=== PATIENT | female | born 1955 | race Caucasian/White ===

== ENCOUNTER 2020-10-01 08:28 | Outpatient (CLI) | payer OTHER, SELFPAY ==
--- NOTE | 2020-10-01 11:00 | NEURO_ITS ---
Impression: # Known diabetic complains of numbness of feet. 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 # Needle/EMG exam revealed decreased motor unit potentials but no fibrillations. # Findings consistent with neuropathy of axonal type. Nerve Conduction Studies Anti Sensory Summary Table Stim Site NR Peak (ms) P-T Amp (?V) Site1 Site2 Delta-P (ms) Dist (cm) Marshal (m/s) Left Sup Fibular Anti Sensory (Ant Lat Mall) 14 cm 4.2 2.2 14 cm Ant Lat Mall 4.2 16.0 38 Right Sup Fibular Anti Sensory (Ant Lat Mall) 14 cm 3.6 6.1 14 cm Ant Lat Mall 3.6 16.0 44 Left Sural Anti Sensory (Lat Mall) Calf 4.2 17.0 Calf Lat Mall 4.2 16.0 38 Right Sural Anti Sensory (Lat Mall) Calf 4.4 9.4 Calf Lat Mall 4.4 16.0 36 Motor Summary Table Stim Site NR Onset (ms) O-P Amp (mV) Site1 Site2 Delta-0 (ms) Dist (cm) Marshal (m/s) Left Peroneal Motor (Vastus Med) Ankle 4.1 0.4 Popit Ankle 10.3 43.0 42 Popit 14.4 0.6 Right Peroneal Motor (Vastus Med) Ankle 4.0 0.3 Popit Ankle 8.9 39.0 44 Popit 12.9 0.2 Left Tibial Motor (Abd Jones Brev) Ankle 5.2 0.8 Knee Ankle 11.4 43.0 38 Knee 16.6 1.5 Right Tibial Motor (Abd Jones Brev) Ankle 4.7 3.7 Knee Ankle 10.8 42.0 39 Knee 15.5 3.5 F Wave Studies NR F-Lat (ms) L-R F-Lat (ms) Left Peroneal (Mrkrs) (EDB) 56.09 0.47 Right Peroneal (Mrkrs) (EDB) 55.63 0.47 Left Tibial (Mrkrs) (Abd Hallucis) 56.81 0.00 Right Tibial (Mrkrs) (Abd Hallucis) 56.81 0.00 EMG Side Muscle Nerve Root Ins Act Fibs Amp Dur Recrt Comment Right AntTibialis Dp Br Fibular L4-5 Nml Nml Nml Nml Nml Right Gastroc Tibial S1-2 Nml Nml Nml Nml Nml Right Fibularis Long Sup Br Fibular L5-S1 Nml Nml Nml Nml Nml Right Flex Dig Long Tibial L5-S2 Nml Nml Nml Nml Nml Right Ext Dig Brev Dp Br Fibular L5, S1 Nml Nml Decr >12ms Reduced Left AntTibialis Dp Br Fibular L4-5 Nml Nml Nml Nml Nml Left Gastroc Tibial S1-2 Nml Nml Nml Nml Nml Left Fibularis Long Sup Br Fibular L5-S1 Nml Nml Nml Nml Nml Left Flex Dig Long Tibial L5-S2 Nml Nml Nml Nml Nml Left Ext Dig Brev Dp Br Fibular L5, S1 Nml Nml Decr >12ms Reduced MTDD
== END 2020-10-01 08:29 | disposition home or self-care (01) ==
PROVIDERS: PCP Family Medicine; Visit Provider Family Medicine
DX: G62.9 Polyneuropathy, unspecified (principal)
CPT/HCPCS: 95886; 95910

== ENCOUNTER 2020-10-09 12:02 | Outpatient (CLI) | payer OTHER, SELFPAY ==
--- NOTE | ~2020-10-09 | MR_ITS ---
EXAMINATION: MR lumbar spine wo [facility] EXAM DATE: 10/09/2020 13:23 INDICATION: M54.41 - Lumbago with sciatica, right side. TECHNIQUE: Multi-sequential, multiplanar MR images of the lumbar spine were obtained without contrast . Sagittal T1, T2, T2 fat saturation images. Axial T2 weighted images. There is no prior study for comparison. FINDINGS: There is moderate to severe disc disease at L3-4 with 3 mm retrolisthesis. There is 2 mm re trolisthesis L2 on L3 with mild to moderate disc disease at this level and the imaged levels above. T he conus medullaris terminates at the L1/2 level and has normal signal intensity and morphology. The re are no suspicious marrow signal abnormalities. Paraspinal soft tissue is unremarkable. Mild lumbar levoscoliosis. Level by level evaluation: T12-L1: Disc does not extend beyond the endplate margin. Facet arthropathy: Mild field. Neural foraminal stenosis: No stenosis. Central canal stenosis: No stenosis. L1-L2: There is a mild diffuse disc bulge. Facet arthropathy: Mild. Neural foraminal stenosis: No stenosis. Central canal stenosis: No stenosis. L2-L3: There is a moderate diffuse disc bulge. Facet arthropathy: Moderate . Ligamentum flavum enlargement. Neural foraminal stenosis: Mild bilateral. Central canal stenosis: Mild. L3-L4: There is a large diffuse disc bulge. Facet arthropathy: Moderate to severe . Ligamentum flavum enlargement. Neural foraminal stenosis: Moderate to severe right, mild to moderate left. Central canal stenosis: Moderate. L4-L5: There is a moderate diffuse disc bulge. Facet arthropathy: Severe left, moderate right. Ligamentum flavum enlargement. Neural foraminal stenosis: Moderate left, mild to moderate right. Central canal stenosis: Moderate to severe. L5-S1: There is a mild diffuse disc bulge. Facet arthropathy: Mild to moderate. Neural foraminal stenosis: Mild bilateral. Central canal stenosis: Mild. IMPRESSION: 1. L3-4 moderate to severe disc disease and right neural foraminal stenosis. 2. L4-5 moderate to severe central canal stenosis. 3. Less spondylosis other levels. Reviewed, dictated and finalized at location A.
== END 2020-10-09 12:03 | disposition home or self-care (01) ==
PROVIDERS: PCP Family Medicine; Visit Provider Family Medicine
DX: M47.817 Spondylosis without myelopathy or radiculopathy, lumbosacral region (principal); M48.07 Spinal stenosis, lumbosacral region; M54.41 Lumbago with sciatica, right side; G62.89 Other specified polyneuropathies
CPT/HCPCS: 72148

== ENCOUNTER → 2021-08-08 00:17 | Outpatient (CLI) | payer SELFPAY ==
[2021-08-08 20:22] LABS: SARS-CoV-2 RNA PCR Negative
[2021-08-10 00:39] LABS: Influenza A QL RT-PCR Negative (Negative); Influenza B QL RT-PCR Negative (Negative)
== END ==
PROVIDERS: PCP Family Medicine; Visit Provider Family Medicine
DX: R50.9 Fever, unspecified (principal); Z20.822 Contact with and (suspected) exposure to COVID-19
CPT/HCPCS: 87502; C9803; U0003; U0005